=== PATIENT | female | born 1985 | race Two or more races ===

== ENCOUNTER 2023-06-11 00:47 | Emergency (ER) | payer SELFPAY ==
[~2023-06-11] VITALS: Ht 165.1 cm; Wt 72.7 kg
[2023-06-11] MEDS ORDERED: ONDANSETRON HCL 4 MG/2 ML VIAL IV ONE (01:15)
[2023-06-11] MEDS ORDERED: KETOROLAC TROMETH 30 MG/ML 1ML VIAL IV ONE (01:15)
[2023-06-11 01:19] LABS: Basophils # (auto) 0.1 10 ^3/uL (0-0.2); Eosinophils # (auto) 0.3 10 ^3/uL (0-0.8); Eosinophils % (auto) 4.7 % (0.0-7.0); Hematocrit 40.8 % (36.0-46.0); Hemoglobin 13.6 g/dL (12.2-16.2); Lymphocytes # (auto) 3.1 10 ^3/uL (0.4-5.4); Lymphocytes % (auto) 44.6 % (10.0-50.0); Mean Corpuscular Hemoglobin 29.3 pg (28.0-32.0); Mean Corpuscular Hgb Conc. 33.3 g/dL (32.0-36.0); Mean Corpuscular Volume 88.1 fL (80.0-100.0); Monocytes # (auto) 0.6 10 ^3/uL (0-1.3); Monocytes % (auto) 8.7 % (0.0-12.0); Neutrophils # (auto) 2.9 10 ^3/uL (1.6-8.6); Nucleated Red Blood Cells % 0.2 %; Red Blood Cells 4.64 10^6/uL (4.0-5.20); Red Cell Distribution Width 13.6 % (11.8-14.3)
[2023-06-11 01:33] LABS: BUN/Creatinine Ratio 13.1 (10.0-20.0); Potassium 3.7 mmol/L (3.5-5.1)
[2023-06-11 01:35] LABS: Bilirubin, Total 0.3 mg/dL (0.2-1.0); Total Protein 7.6 g/dL (6.4-8.2)
[2023-06-11 01:58] LABS: Urine Bacteria FEW /hpf (None Seen); Urine Blood 3+ /uL (Negative); Urine Mucus FEW (None Seen); Urine Specific Gravity 1.028 (1.001-1.035); Urine WBC 10 /hpf (0 - 5)
[2023-06-11] MEDS ORDERED: ZOFR4T PO (02:35)
[2023-06-11] MEDS ORDERED: PERCOT PO (02:35)
[2023-06-11] MEDS ORDERED: NITR-87 PO (02:35)
[2023-06-11] MEDS ORDERED: TAMS-35 PO (02:35)
[2023-06-11] MEDS ORDERED: cefTRIAXone 1GM/50ML D5W 50 ML IV ONE (02:45)
[2023-06-11] MEDS ORDERED: OXYCODONE W/ ACETAMINOPHEN 5/325MG TABLET PO ONE (03:00)
[2023-06-11 03:24] VITALS: BP 113/69
== END 2023-06-11 02:36 | disposition home or self-care (01) ==
LOC: ER 00:47
DX: R10.9 Unspecified abdominal pain (principal)
CPT/HCPCS: 36415; 74176; 80053; 81001; 85025; 96365; 96375; 99285; J0696; J1885; J2405

== ENCOUNTER 2023-06-12 18:36 | Inpatient (IN) | payer MEDICAID, OTHER ==
[~2023-06-12] VITALS: Ht 165.1 cm; Wt 85.1 kg
[~2023-06-12 18:36] MED LIST: NITR-87 PO; PERCOT PO; TAMS-35 PO; ZOFR4T PO
[2023-06-12] MEDS ORDERED: SODIUM CHLORIDE 0.9% 1,000 ML IVB ONE (19:30)
[2023-06-12] MEDS ORDERED: KETOROLAC TROMETH 30 MG/ML 1ML VIAL IV ONE (19:30)
[2023-06-12] MEDS ORDERED: ONDANSETRON HCL 4 MG/2 ML VIAL IV ONE (19:30)
[2023-06-12 20:11] LABS: Basophils # (auto) 0.1 10 ^3/uL (0-0.2); Basophils % (auto) 1.1 % (0.0-2.0); Eosinophils # (auto) 0.2 10 ^3/uL (0-0.8); Hematocrit 43.9 % (36.0-46.0); Hemoglobin 14.7 g/dL (12.2-16.2); Lymphocytes # (auto) 1.4 10 ^3/uL (0.4-5.4); Lymphocytes % (auto) 17.8 % (10.0-50.0); Mean Corpuscular Hemoglobin 29.6 pg (28.0-32.0); Mean Corpuscular Hgb Conc. 33.4 g/dL (32.0-36.0); Mean Corpuscular Volume 88.6 fL (80.0-100.0); Monocytes # (auto) 0.6 10 ^3/uL (0-1.3); Monocytes % (auto) 7.5 % (0.0-12.0); Neutrophils # (auto) 5.8 10 ^3/uL (1.6-8.6); Neutrophils % (auto) 71.6 % (37.0-80.0); Red Blood Cells 4.96 10^6/uL (4.0-5.20); Red Cell Distribution Width 13.7 % (11.8-14.3); White Blood Cell 8.1 10^3/uL (4.4-10.8)
[2023-06-12 20:40] LABS: Albumin 4.1 g/dL (3.4-5.0); BUN/Creatinine Ratio 7.7 (10.0-20.0); Calcium 9.3 mg/dL (8.5-10.1); Potassium 3.7 mmol/L (3.5-5.1)
[2023-06-12 20:43] LABS: Bilirubin, Total 0.4 mg/dL (0.2-1.0); Total Protein 8.1 g/dL (6.4-8.2)
[2023-06-12 22:02] LABS: Urine Bacteria NONE SEEN /hpf (None Seen); Urine Blood 3+ /uL (Negative); Urine Clarity HAZY (Clear); Urine Color PINK (Yellow); Urine Mucus FEW (None Seen); Urine Protein, UAD 1+ (Negative); Urine Specific Gravity 1.025 (1.001-1.035); Urine Urobilinogen Normal (Negative); Urine WBC 24 /hpf (0 - 5); Urine pH 5.5 (5.0-8.0)
[2023-06-12] MEDS ORDERED: MORPHINE SULFATE INJ 2 MG/ml SYRG IV PRN ×2 (22:45)
[2023-06-12] MEDS ORDERED: NITROGLYCERIN 0.4 MG SL TAB SL PRN (22:45)
[2023-06-12] MEDS ORDERED: cefTRIAXone 1GM/50ML D5W 50 ML IV ONE (22:45)
[2023-06-12] MEDS ORDERED: HYDROcodone-ACET 5/325MG TAB PO PRN (22:45)
[2023-06-12] MEDS ORDERED: ACETAMINOPHEN 325 MG TAB PO PRN (22:45)
[2023-06-12] MEDS ORDERED: ONDANSETRON HCL 4 MG/2 ML VIAL IV PRN (22:45)
[2023-06-12] MEDS ORDERED: DOCUSATE SOD 100 MG CAP PO PRN (22:45)
[2023-06-12] MEDS: D5W/SOD CHLO 0.9% 1,000 ML IV SCH (23:38)
[2023-06-13 02:25] VITALS: O2SAT 98
[2023-06-13 05:03] LABS: Basophils # (auto) 0.1 10 ^3/uL (0-0.2); Eosinophils # (auto) 0.1 10 ^3/uL (0-0.8); Eosinophils % (auto) 1.5 % (0.0-7.0); Hematocrit 37.7 % (36.0-46.0); Hemoglobin 12.6 g/dL (12.2-16.2); Lymphocytes % (auto) 22.2 % (10.0-50.0); Mean Corpuscular Hemoglobin 29.7 pg (28.0-32.0); Mean Corpuscular Hgb Conc. 33.3 g/dL (32.0-36.0); Mean Corpuscular Volume 89.3 fL (80.0-100.0); Monocytes # (auto) 0.7 10 ^3/uL (0-1.3); Monocytes % (auto) 7.5 % (0.0-12.0); Neutrophils # (auto) 6.1 10 ^3/uL (1.6-8.6); Neutrophils % (auto) 67.8 % (37.0-80.0); Nucleated Red Blood Cells % 0.1 %; Red Blood Cells 4.23 10^6/uL (4.0-5.20); Red Cell Distribution Width 13.4 % (11.8-14.3)
[2023-06-13 05:20] LABS: Albumin 3.6 g/dL (3.4-5.0); Calcium 8.2 mg/dL (8.5-10.1)
[2023-06-13 05:37] LABS: BUN/Creatinine Ratio 7.1 (10.0-20.0); Bilirubin, Total 0.4 mg/dL (0.2-1.0); Potassium 3.7 mmol/L (3.5-5.1); Total Protein 6.8 g/dL (6.4-8.2)
[2023-06-13 08:42] VITALS: BP 99/60; PULSE 57; RESP 18; TEMP 98.6; O2SAT 97
[2023-06-13] MEDS: FAMOTIDINE (10MG/ML) 2ML VL IV SCH ×2 (09:42→21:48)
[2023-06-13] MEDS: D5W/SOD CHLO 0.9% 1,000 ML IV SCH ×3 (09:45→21:48)
[2023-06-13 13:02] VITALS: BP 111/72; PULSE 63; RESP 18; TEMP 98.9; O2SAT 99
[2023-06-13 16:24] VITALS: BP 107/62; PULSE 51; RESP 20; TEMP 98.7; O2SAT 93
[2023-06-13 20:00] VITALS: PULSE 53; RESP 16
[2023-06-13] MEDS ORDERED: cefTRIAXone 1GM/50ML D5W 50 ML IV SCH (21:00)
[2023-06-13 22:00] VITALS: BP 117/70; PULSE 53; RESP 16; TEMP 98.5; O2SAT 98
[2023-06-14] MEDS: D5W/SOD CHLO 0.9% 1,000 ML IV SCH ×2 (04:45→09:26)
[2023-06-14 05:00] VITALS: BP 98/56; PULSE 58; RESP 14; TEMP 98.5; O2SAT 94
[2023-06-14] MEDS: FAMOTIDINE (10MG/ML) 2ML VL IV SCH (09:22)
[2023-06-14 09:25] VITALS: BP 108/55; PULSE 58; RESP 20; TEMP 98.1; O2SAT 95
[2023-06-14 13:30] VITALS: BP 122/68; PULSE 51; RESP 18; TEMP 98.1; O2SAT 100
[2023-06-14] MEDS ORDERED: CEPH250C PO (16:17)
[2023-06-14 16:46] VITALS: BP 100/61; PULSE 94; RESP 22; TEMP 98.1; O2SAT 97
[2023-06-14 16:56] VITALS: TEMP 36.7
== END 2023-06-14 18:37 | disposition home or self-care (01) | DRG 463 ==
LOC: ER 18:36 → OVERFLOW 22:49 → EAST 06-13 05:48
PROVIDERS: ADMIT Nurse Practitioner Family; ATTEND Nurse Practitioner Family
DX: N13.6 Pyonephrosis (principal); I10 Essential (primary) hypertension; Z83.3 Family history of diabetes mellitus; Z82.5 Family history of asthma and other chronic lower respiratory diseases; Z87.442 Personal history of urinary calculi; Z79.899 Other long term (current) drug therapy; Z98.51 Tubal ligation status; Z90.49 Acquired absence of other specified parts of digestive tract
CPT/HCPCS: 36415; 74176; 80053; 81001; 85025; 87086; 96361; 96365; 96375; G0378; J0696; J1885; J2405; J3490

== ENCOUNTER 2024-05-26 16:32 | Emergency (ER) | payer MEDICAID, OTHER ==
[~2024-05-26] VITALS: Ht 165.1 cm; Wt 79.5 kg
[~2024-05-26 16:32] MED LIST changes: +CEPH250C PO; -NITR-87 PO
[2024-05-26] MEDS: DexAMETHasone SOD PHOS 10MG/1ML VIAL INJ IM ONE (20:10)
[2024-05-26] MEDS: HYDROcodone-ACET 5/325MG TAB PO ONE (20:10)
[2024-05-26] MEDS: KETOROLAC TROMETH 60MG/2ML VIAL IM ONE (20:12)
[2024-05-26] MEDS ORDERED: BACL10TA PO (21:17)
[2024-05-26] MEDS ORDERED: HYDR-4902 PO (21:17)
[2024-05-26 21:35] VITALS: BP 110/76; PULSE 76; RESP 18; TEMP 98; O2SAT 98
== END 2024-05-26 22:02 | disposition home or self-care (01) ==
LOC: EDBD 16:32 → ER 16:32
DX: M51.16 Intervertebral disc disorders with radiculopathy, lumbar region (principal); M62.830 Muscle spasm of back; F15.90 Other stimulant use, unspecified, uncomplicated; Z87.442 Personal history of urinary calculi; Z98.890 Other specified postprocedural states; Z79.899 Other long term (current) drug therapy
CPT/HCPCS: 72131; 96372; 99285; J1100; J1885